=== PATIENT | female | born 1975 | race Two or more races ===

== ENCOUNTER 2022-01-06 10:17 | Emergency (ER) | payer OTHER ==
[~2022-01-06] VITALS: Ht 160 cm; Wt 75.7 kg
[2022-01-06] MEDS ORDERED: SYNTHROID125 MCG PO (10:48)
[2022-01-06] MEDS ORDERED: MUCINEX1200 MG PO (14:16)
[2022-01-06] MEDS ORDERED: BENZONATATE200 M1 PO (14:16)
== END 2022-01-06 16:42 | disposition home or self-care (01) ==
LOC: ER 10:17
DX: J06.9 Acute upper respiratory infection, unspecified (principal); E03.9 Hypothyroidism, unspecified; J45.909 Unspecified asthma, uncomplicated; G40.909 Epilepsy, unspecified, not intractable, without status epilepticus; Z20.822 Contact with and (suspected) exposure to COVID-19